=== PATIENT | male | born 1965 | race Two or more races ===

== ENCOUNTER 2020-04-30 06:30 | Day surgery (SDC) | payer OTHER ==
[2020-04-27 11:18] LABS: COVID AG,FIA SOURCE NASOPHARYNGEAL
[~2020-04-30] VITALS: Ht 157.5 cm; Wt 80.0 kg
[~2020-04-30 06:30] MED LIST: LISI-663 PO; METF-960 PO; SODIUM CHLORIDE 0.9% 1,000 ML IV ONE; SODIUM CHLORIDE 0.9% 1,000 ML ONE
[2020-04-30 07:29] LABS: GLUCOMETER DEV NAME(LOC) SDS.; GLUCOSE,POINT OF CARE 111 MG/DL (70-110)
[2020-04-30] MEDS ORDERED: FentaNYL CITRATE PF 100 MCG/2 ML VIAL ONE (07:37)
[2020-04-30] MEDS ORDERED: MIDAZOLAM HCL 2 MG/2 ML VIAL ONE (07:37)
[2020-04-30] MEDS ORDERED: MethylPREDNISolone SOD SUCC 125 MG/2 ML VIAL IVP ONE (09:00)
[2020-04-30] MEDS ORDERED: MethylPREDNISolone SOD SUCC 125 MG/2 ML VIAL ONE (09:31)
[2020-04-30] MEDS ORDERED: LIDOCAINE 2% 30 ML JELLY ONE (16:48)
[2020-04-30] MEDS ORDERED: BENZOCAINE 20% 50 MCG/SPRAY 57 GM ONE (16:48)
[2020-04-30] MEDS ORDERED: ALBUTEROL SULFATE 2.5 MG/0.5 ML NEB SOLUTION NEB ONE (16:48)
[2020-04-30] MEDS ORDERED: LIDOCAINE 4% 50 ML SOLUTION ONE (16:48)
[2020-04-30] MEDS ORDERED: OXYGEN THERAPY IH SCH (20:00)
== END 2020-04-30 10:30 | disposition home or self-care (01) ==
LOC: SURGERY 06:30
PROVIDERS: ATTEND Internal Medicine Critical Care Medicine
DX: J38.4 Edema of larynx (principal); B37.0 Candidal stomatitis; I10 Essential (primary) hypertension; G47.33 Obstructive sleep apnea (adult) (pediatric); Z87.01 Personal history of pneumonia (recurrent); Z79.899 Other long term (current) drug therapy
CPT/HCPCS: 31623; 31624; 71045; 82962; 87015; 87070; 87077; 87101; 87206; 87220; 87426; 88108; 88184; 88185; 88312; 88342; C9803; J2250; J2930; J3010; J7030; 87205; 88341; J7613; Z7610